=== PATIENT | female | born 1965 | race Caucasian/White ===

== ENCOUNTER 2017-12-23 12:30 | Emergency (ER) | payer OTHER ==
[~2017-12-23] VITALS: Ht 162.6 cm; Wt 100.9 kg
[2017-12-23 12:40] VITALS: TEMP 36.8; Ht 162.6 cm; Wt 100.9 kg
[2017-12-23] MEDS ORDERED: ONDANSETRON INJ 2 MG/ML 2 ML VIAL IV STA (13:10)
[2017-12-23] MEDS ORDERED: SODIUM CHLORIDE 0.9% 1000ML 1,000 ML IV ONE (13:10)
[2017-12-23] MEDS ORDERED: SODIUM CHLORIDE 0.9% 1000ML 1,000 ML IV STA (13:10)
[2017-12-23] MEDS ORDERED: KETOROLAC TROMETHAMINE 30 MG/ML VIAL IV STA (13:10)
[2017-12-23] MEDS ORDERED: LEVO25TA PO (13:30)
[2017-12-23 13:42] LABS: BASO % 0.4 %; BASO ABS # 0.04 K/uL (0-0.2); EOS % 0.5 %; EOS ABS # 0.05 K/uL (0-0.5); HEMATOCRIT 42.7 % (37-47); HEMOGLOBIN 14.3 g/dL (12.0-16.0); IG# 0.02 K/uL (0.00-0.02); LYMPH % 12.3 %; LYMPH ABS # 1.34 K/uL (1.2-3.4); MEAN CELL VOLUME 94.1 fL (80-100); MEAN CORPUSCULAR HEMOGLOBIN 31.5 pg (25-34); MEAN CORPUSCULAR HGB CONC 33.5 g/dl (32-36); MEAN PLATELET VOLUME 9.9 fL (7.4-10.4); MONO % 6.1 %; MONO ABS # 0.67 K/uL (0.11-0.59); NEUT % 80.5 %; NEUT ABS # 8.79 K/uL (1.4-6.5); PLATELET COUNT 275 K/uL (130-400); RED CELL DISTRIBUTION WIDTH CV 13.9 % (11.5-14.5); RED CELL DISTRIBUTION WIDTH SD 47.8 fL (36.4-46.3); WHITE BLOOD COUNT 10.91 K/uL (4.8-10.8)
--- NOTE | 2017-12-23 13:56 | DIAGNOSTIC IMAGING REPORT ---
CT SCAN OF THE ABDOMEN AND PELVIS WITHOUT CONTRAST CLINICAL HISTORY: Right flank pain COMPARISON STUDY: No previous studies for comparison. TECHNIQUE: CT scan of the abdomen and pelvis was performed from the lung bases to the proximal femurs. Images are reviewed in the axial, sagittal, and coronal planes. IV contrast was not administered for this examination. A dose lowering technique was utilized adhering to the principles of ALARA. CT DOSE: 829.67 mGy.cm FINDINGS: Lower chest: There are minor dependent atelectatic changes. A small hiatal hernia Liver: The unenhanced liver is normal in size, contour, and attenuation. There is no intrahepatic biliary ductal dilatation. Gallbladder: Unremarkable. Spleen: Normal in size and attenuation. Pancreas: Unremarkable. Adrenal glands: Unremarkable. Kidneys: There is a 2 mm right renal calcification which is likely cortical. There is right-sided hydronephrosis and hydroureter. There is a 3 mm obstructing calculus at the level of the right ureterovesical junction. There is slight increased density of the urine within the renal pelvis and right ureter. This could indicate an element of hemorrhage or hyper concentrated urine. Bowel: There are no transition zones indicate bowel obstruction. There is pandiverticulosis. There are no acute peridiverticular inflammatory changes. The appendix appears normal. Peritoneum: There is no intraperitoneal free air or abdominal ascites. Vasculature: The abdominal aorta is normal in course and caliber. Adenopathy: None. Pelvic viscera: The bladder, and pelvic viscera are unremarkable. Skeletal structures: No destructive osseous lesions are seen. IMPRESSION: 1. 3 mm obstructing calculus at the level of the right ureterovesical junction with secondary hydroureteronephrosis 2. Pandiverticulosis. No evidence of acute diverticulitis 3. Normal appendix Electronically signed by: Jian Gomes M.D. 12/23/2017 1:55 PM Dictated Date/Time: 12/23/2017 1:49 PM
[2017-12-23 13:57] LABS: ALBUMIN 4.1 gm/dl (3.4-5.0); CALCIUM 9.3 mg/dl (8.5-10.1); CREATININE 0.96 mg/dl (0.60-1.20); POTASSIUM 4.1 mmol/L (3.5-5.1)
[2017-12-23 13:59] LABS: TOTAL PROTEIN 7.7 gm/dl (6.4-8.2)
[2017-12-23] MEDS ORDERED: MoRPHine SULFATE 4 MG/ML 1 ML CARP\\VIAL ONE (14:22)
[2017-12-23] MEDS ORDERED: MoRPHine SULFATE 4 MG/ML 1 ML CARP\\VIAL IV STA ×2 (14:22→15:11)
[2017-12-23] MEDS ORDERED: CIPROFLOXACIN 500 MG TAB PO STA (16:29)
[2017-12-23] MEDS ORDERED: CIPR-255 PO (16:33)
[2017-12-23] MEDS ORDERED: OXYC1TAB3 PO (16:33)
--- NOTE | 2017-12-23 16:39 | EMERGENCY ROOM VISIT NOTE ---
History Report prepared by Guerita: El Larios Under the Supervision of: Dr. Tacos Metz M.D. First contact with patient: 12:58 Chief Complaint: BACK PAIN Stated Complaint: BACK PAIN, NAUSEA History of Present Illness The patient is a 52 year old female who presents to the Emergency Room with complaints of worsening right lower back pain beginning nine hours ago. Her pain began during the night. Her pain worsened today while at the dentist today. The patient's pain now radiates into her right abdomen. She also complains of nausea. She rates her pain as a 9/10 in severity. The patient notes that she has been urinating a lot because she has been drinking a lot of water. She denies any urinary symptoms, fevers, chest pain, or SOB. The patient denies recent falls or trauma. She denies abnormal straining. She denies chance of . Source of History: patient Onset: nine hours ago Position: back (right lower) Symptom Intensity: 9/10 Timing: worsening Associated Symptoms: + nausea, + abdominal pain (right), No fevers, No chest pain, No SOB, No urinary symptoms Review of Systems See HPI for pertinent positives & negatives. A total of 10 systems reviewed and were otherwise negative. Past Medical & Surgical Medical Problems: (1) Hypothyroid (2) Neuropathy (3) Sleep apnea Surgical Problems: (1) H/O: hysterectomy Old medical records were reviewed. Nurse's notes were reviewed and I agree with. Family History No pertinent family history stated. Social History Smoking Status: Never Smoker Marital Status: Occupation Status: employed Current/Historical Medications Scheduled Ciprofloxacin Hcl (Cipro), 500 MG PO BID Levothyroxine Sodium (Synthroid), Unknown Dose PO DAILY Scheduled PRN Oxycodone Immediate Rel Tab (Roxicodone Ir), 1-2 TAB PO Q4H PRN for Severe Pain Allergies Coded Allergies: No Known Allergies (Unverified , 12/23/17) Physical Exam Vital Signs Date Time Temp Pulse Resp B/P (MAP) Pulse Ox O2 Delivery O2 Flow Rate FiO2 12/23/17 16:45 77 18 127/70 97 12/23/17 16:17 77 18 127/70 97 Room Air 12/23/17 14:22 83 18 138/81 97 Room Air 12/23/17 13:33 79 16 153/89 96 Room Air 12/23/17 12:40 36.8 83 16 96 Room Air Physical Exam General: Mildly uncomfortable appearing middle-aged female in no acute distress. Complaining of right flank pain. HEENT: Normal cephalic atraumatic. Pupils are equal round and reactive to light. Extraocular movements are intact. Oropharynx is pink with moist mucous membranes. No swelling of the mouth lips or tongue. Neck: Supple with a midline trachea. No meningeal signs or stiffness, no JVD or bruits. No Stridor. Chest: Clear to auscultation bilaterally. No wheezes or rhonchi. No increased work of breathing. Heart: regular rate and rhythm. Abdomen: Soft, nondistended without rebound guarding or rigidity. Mild right abdominal tenderness. No rashes. Extremities: No cyanosis clubbing or edema. No calf tenderness or assymetry Spine/Back. Non tender to palpation. Mild right CVA tenderness. No rashes. Skin: Good turgor without rashes. Neurologic exam: Cranial nerves two through 12 are intact. Motor and sensation are intact and symmetrical throughout. Medical Decision & Procedures ER Provider Diagnostic Interpretation: Radiology results as stated below per my review and radiologist interpretation: CT SCAN OF THE ABDOMEN AND PELVIS WITHOUT CONTRAST FINDINGS: Lower chest: There are minor dependent atelectatic changes. A small hiatal hernia Liver: The unenhanced liver is normal in size, contour, and attenuation. There is no intrahepatic biliary ductal dilatation. Gallbladder: Unremarkable. Spleen: Normal in size and attenuation. Pancreas: Unremarkable. Adrenal glands: Unremarkable. Kidneys: There is a 2 mm right renal calcification which is likely cortical. There is right-sided hydronephrosis and hydroureter. There is a 3 mm obstructing calculus at the level of the right ureterovesical junction. There is slight increased density of the urine within the renal pelvis and right ureter. This could indicate an element of hemorrhage or hyper concentrated urine. Bowel: There are no transition zones indicate bowel obstruction. There is pandiverticulosis. There are no acute peridiverticular inflammatory changes. The appendix appears normal. Peritoneum: There is no intraperitoneal free air or abdominal ascites. Vasculature: The abdominal aorta is normal in course and caliber. Adenopathy: None. Pelvic viscera: The bladder, and pelvic viscera are unremarkable. Skeletal structures: No destructive osseous lesions are seen. IMPRESSION: 1. 3 mm obstructing calculus at the level of the right ureterovesical junction with secondary hydroureteronephrosis 2. Pandiverticulosis. No evidence of acute diverticulitis 3. Normal appendix Electronically signed by: Jian Gomes M.D. 12/23/2017 1:55 PM Laboratory Results 12/23/17 13:20 Red Blood Count 4.54, Mean Corpuscular Volume 94.1, Mean Corpuscular Hemoglobin 31.5, Mean Corpuscular Hemoglobin Concent 33.5, Mean Platelet Volume 9.9, Neutrophils (%) (Auto) 80.5, Lymphocytes (%) (Auto) 12.3, Monocytes (%) (Auto) 6.1, Eosinophils (%) (Auto) 0.5, Basophils (%) (Auto) 0.4, Neutrophils # (Auto) 8.79, Lymphocytes # (Auto) 1.34, Monocytes # (Auto) 0.67, Eosinophils # (Auto) 0.05, Basophils # (Auto) 0.04 12/23/17 13:20 Test 12/23/17 13:20 12/23/17 14:32 White Blood Count 10.91 K/uL (4.8-10.8) Red Blood Count 4.54 M/uL (4.2-5.4) Hemoglobin 14.3 g/dL (12.0-16.0) Hematocrit 42.7 % (37-47) Mean Corpuscular Volume 94.1 fL (80-100) Mean Corpuscular Hemoglobin 31.5 pg (25-34) Mean Corpuscular Hemoglobin Concent 33.5 g/dl (32-36) Platelet Count 275 K/uL (130-400) Mean Platelet Volume 9.9 fL (7.4-10.4) Neutrophils (%) (Auto) 80.5 % Lymphocytes (%) (Auto) 12.3 % Monocytes (%) (Auto) 6.1 % Eosinophils (%) (Auto) 0.5 % Basophils (%) (Auto) 0.4 % Neutrophils # (Auto) 8.79 K/uL (1.4-6.5) Lymphocytes # (Auto) 1.34 K/uL (1.2-3.4) Monocytes # (Auto) 0.67 K/uL (0.11-0.59) Eosinophils # (Auto) 0.05 K/uL (0-0.5) Basophils # (Auto) 0.04 K/uL (0-0.2) RDW Standard Deviation 47.8 fL (36.4-46.3) RDW Coefficient of Variation 13.9 % (11.5-14.5) Immature Granulocyte % (Auto) 0.2 % Immature Granulocyte # (Auto) 0.02 K/uL (0.00-0.02) Anion Gap 8.0 mmol/L (3-11) Est Creatinine Clear Calc Drug Dose 81.0 ml/min Estimated GFR () 79.9 Estimated GFR (Non- 69.0 BUN/Creatinine Ratio 18.8 (10-20) Calcium Level 9.3 mg/dl (8.5-10.1) Total Bilirubin 0.6 mg/dl (0.2-1) Direct Bilirubin 0.1 mg/dl (0-0.2) Aspartate Amino Transf (AST/SGOT) 22 U/L (15-37) Alanine Aminotransferase (ALT/SGPT) 29 U/L (12-78) Alkaline Phosphatase 69 U/L (45-117) Total Protein 7.7 gm/dl (6.4-8.2) Albumin 4.1 gm/dl (3.4-5.0) Lipase 77 U/L (73-393) Urine Color DK YELLOW Urine Appearance CLOUDY (CLEAR) Urine pH 5.5 (4.5-7.5) Urine Specific Carpenter 1.032 (1.000-1.030) Urine Protein NEG (NEG) Urine Glucose (UA) NEG (NEG) Urine Ketones 1+ (NEG) Urine Occult Blood NEG (NEG) Urine Nitrite NEG (NEG) Urine Bilirubin NEG (NEG) Urine Urobilinogen NEG (NEG) Urine Leukocyte Esterase SMALL (NEG) Urine WBC (Auto) 10-30 /hpf (0-5) Urine RBC (Auto) 0-4 /hpf (0-4) Urine Hyaline Casts (Auto) 10-30 /lpf (0-5) Urine Epithelial Cells (Auto) >30 /lpf (0-5) Urine Bacteria (Auto) NEG (NEG) Urine Yeast (Auto) (NONE PRSENT) Laboratory studies as stated above per my review. Medications Administered Medications (Trade) Dose Ordered Sig/Tyrone Route Start Time Stop Time Status Last Admin Dose Admin Sodium Chloride 1,000 ml @ 999 mls/hr Q1H1M STAT IV 12/23/17 13:10 12/23/17 14:10 DC 12/23/17 13:24 999 MLS/HR Sodium Chloride 1,000 ml @ 150 mls/hr Q6H40M ONCE IV 12/23/17 13:10 12/23/17 17:27 DC 12/23/17 13:25 150 MLS/HR Ondansetron HCl (Zofran Inj) 4 mg NOW STAT IV 12/23/17 13:10 12/23/17 13:14 DC 12/23/17 13:25 4 MG Ketorolac Tromethamine (Toradol Inj) 30 mg NOW STAT IV 12/23/17 13:10 12/23/17 13:14 DC 12/23/17 13:26 30 MG Morphine Sulfate (MoRPHine SULFATE INJ) 4 mg STK-MED ONCE .ROUTE 12/23/17 14:22 12/23/17 14:23 DC 12/23/17 14:25 4 MG Morphine Sulfate (MoRPHine SULFATE INJ) 4 mg NOW STAT IV 12/23/17 15:11 12/23/17 15:12 DC 12/23/17 15:23 4 MG Ciprofloxacin (Cipro Tab) 500 mg NOW STAT PO 12/23/17 16:29 12/23/17 16:30 DC 12/23/17 16:45 500 MG ED Course 1300: Past medical records reviewed. The patient was evaluated in room C1B, and a complete history and physical examination were performed. 1310: Ordered Toradol Inj 30 mg IV, Zofran Inj 4 mg IV, Sodium Chloride 1000 ml @ 150 mls/hr IV, Sodium Chloride 1000 ml @ 999 mls/hr IV. 1418: I checked in on the patient. She is still having pain. Her has arrived. 1625: Upon reevaluation, the patient is resting comfortably. I discussed the results and treatment plan with her. She verbalized agreement of the treatment plan. The patient was discharged home. Medical Decision Differentials include, but are not limited to; kidney stone, kidney infection, musculoskeletal, bowel obstruction and electrolyte or metabolic abnormality. This patient comes in complaining of right flank pain she appears uncomfortable. She has never had this before. No history of kidney stones. no dysuria or hematuria or fever. She has had some nausea. IV access established was hydrated with IV normal saline. Urinalysis is suboptimal as there is epithelial cells but no definite infection. She does have a mild white count but no other signs to suggest infection. She is afebrile. She has normal kidney function. She has no acute electrolyte or metabolic abnormalities. CAT scan shows a distal 3 mm stone on the right with some obstructive uropathy. She did receive IV Toradol while she is in the ER as well as IV morphine 2 and IV Zofran as well as IV hydration. she is feeling significantly better and up to going home . I will discharge her home. she should rest and strain her urine. drink plenty of fluids. Use ibuprofen for pain. For breakthrough pain, she can use OxyIR and a prescription was given. She was warned that this could make her drowsy do not take before drinking, driving, working. I will also put her on Cipro to cover her for the possibility of an early infection whic I think that is unlikely. She was encouraged to return if: fever, worsening of symptoms, pain not adequately controlled, any new problems or concerns. She is happy to plan and discharged to home. Medication Reconcilliation Current Medication List: was personally reviewed by me Blood Pressure Screening Patient's blood pressure: Normal blood pressure Blood pressure disposition: Did not require urgent referral Impression Primary Impression: Renal colic Additional Impression: Kidney stone Scribe Attestation The scribe's documentation has been prepared under my direction and personally reviewed by me in its entirety. I confirm that the note above accurately reflects all work, treatment, procedures, and medical decision making performed by me. Departure Information Dispostion Home / Self-Care Prescriptions Oxycodone Immediate Rel Tab (ROXICODONE IR) 5 Mg Tab 1-2 TAB PO Q4H Y for Severe Pain, #15 TAB Prov: Tacos Metz M.D. 12/23/17 Ciprofloxacin Hcl (CIPRO) 500 Mg Tab 500 MG PO BID, #14 TAB Prov: Tacos Metz M.D. 12/23/17 Referrals SEAN LUNA (PCP) Forms HOME CARE DOCUMENTATION FORM, IMPORTANT VISIT INFORMATION Patient Instructions My [facility] Additional Instructions Rest. Drink plenty of fluids. Strain your urine. Use ibuprofen 400 mg every 6 hours, take with food For more severe pain, use OxyIR 5 mg, 1 or 2 pills every 4- 6 hours as needed OxyIR may make you drowsy -do not take before drinking, driving, working Take Cipro 500 mg twice a day for 7 days Return if: Increasing pain, worsening of symptoms, fever or chills, burning on urination, any new problems or concerns Up with your doctor this week for recheck or return here if symptoms worsen Problem Qualifiers
[2017-12-23 16:45] VITALS: BP 127/70; PULSE 77; O2SAT 97
--- NOTE | 2017-12-23 19:10 | Pharmacy Progress Note ---
ED Pharmacist Progress Note Date of Service: Dec 23, 2017. Received call from pharmacist (Jenny) [facility] in [place] requesting clarification on strength of oxycodone prescribed by Dr. Metz. Dr. Metz's note: Oxycodone Immediate Rel Tab (ROXICODONE IR) 5 Mg Tab 1-2 TAB PO Q4H Y for Severe Pain, #15 TAB Prov: Tacos Metz Provided verbal confirmation that 5 mg tablet was intended/prescribed. Jenny acknowledged understanding. She also requested Dr. Metz's MACO# which I provided.
== END 2017-12-23 16:55 | disposition home or self-care (01) ==
LOC: C.EDB 12:33 → C.EDC 16:55
DX: N23 Unspecified renal colic (principal); N20.0 Calculus of kidney; E03.9 Hypothyroidism, unspecified; G62.9 Polyneuropathy, unspecified; Z90.710 Acquired absence of both cervix and uterus